=== PATIENT | female | born 1995 | race Two or more races ===

== ENCOUNTER 2023-07-20 10:09 | Outpatient (CLI) | payer OTHER | END 2023-07-20 12:45 | disposition home or self-care (01) | LOC: PRENATAL 10:09 | PROVIDERS: ATTEND Obstetrics & Gynecology Maternal & Fetal Medicine | DX: O36.80X0 Pregnancy with inconclusive fetal viability, not applicable or unspecified (principal); O99.210 Obesity complicating pregnancy, unspecified trimester; Z3A.11 11 weeks gestation of pregnancy ==

== ENCOUNTER 2023-09-15 08:04 | Outpatient (CLI) | payer OTHER | END 2023-09-15 08:05 | disposition home or self-care (01) | LOC: PRENATAL 08:04 | PROVIDERS: ATTEND Obstetrics & Gynecology Maternal & Fetal Medicine | DX: O35.3XX0 Maternal care for (suspected) damage to fetus from viral disease in mother, not applicable or unspecified (principal); O99.210 Obesity complicating pregnancy, unspecified trimester; O44.00 Complete placenta previa NOS or without hemorrhage, unspecified trimester; Z3A.19 19 weeks gestation of pregnancy ==

== ENCOUNTER → 2023-12-13 15:13 | Outpatient (CLI) | payer OTHER | END | disposition home or self-care (01) | LOC: PRENATAL 15:13 | PROVIDERS: ATTEND Obstetrics & Gynecology Maternal & Fetal Medicine | DX: O36.8199 Decreased fetal movements, unspecified trimester, other fetus (principal); Z3A.32 32 weeks gestation of pregnancy ==

== ENCOUNTER 2024-01-12 13:04 | Outpatient (CLI) | payer OTHER | END 2024-01-12 13:05 | disposition home or self-care (01) | LOC: PRENATAL 13:04 | PROVIDERS: ATTEND Obstetrics & Gynecology Maternal & Fetal Medicine | DX: O26.849 Uterine size-date discrepancy, unspecified trimester (principal); O36.8199 Decreased fetal movements, unspecified trimester, other fetus; Z3A.36 36 weeks gestation of pregnancy ==

== ENCOUNTER 2024-01-23 00:34 | Inpatient (IN) | payer OTHER ==
[~2024-01-23] VITALS: Ht 157.5 cm; Wt 92.5 kg
[2024-01-23] MEDS ORDERED: RINGERS SOLUTION,LACTATED 1,000 ML IV SCH (01:00)
[2024-01-23] MEDS ORDERED: PRENATABS RX T1 EACH PO (01:11)
[2024-01-23 01:13] LABS: PH,URINE 5.5 (5.0-8.0); URINE APPEARANCE Cloudy; URINE BILIRRUBIN Negative (NEGATIVE); URINE BLOOD Negative; URINE COLOR Dark Yellow; URINE GLUCOSE Negative (NEGATIVE); URINE LEUKOCYTE Small; URINE NITRATE Negative; URINE PROTEIN 30 (NEGATIVE)
[2024-01-23 01:14] LABS: HEMATOCRIT 32.9 % (36.0-45.00); HEMOGLOBIN 11.5 g/dL (12.0-15.00); MEAN CELL VOLUME 83.3 fL (80.00-100.00); MEAN CORPUSCULAR HEMOGLOBIN 29.2 pg (27.00-32.0); PLATELET COUNT 194 K/uL (150-450); RED BLOOD COUNT 3.95 M/uL (4.00-6.00); RED CELL DISTRIBUTION WIDTH 12.7 % (11.5-14.5)
[2024-01-23 01:17] LABS: URINE BACTERIA 8819.9 uL (0.0-1933); URINE EPITHELIAL CELLS 99.5 uL (0.0-38.8); URINE WBC 399.5 uL (0.0-23.2)
[2024-01-23 02:12] LABS: URINE MUCUS MODERATE
[2024-01-23] MEDS ORDERED: CEFAZOLIN SODIUM 1,000 MG VIAL IV SCH (02:21)
[2024-01-23] MEDS ORDERED: IBUprofen 400 MG TABLET PO STA (09:11)
[2024-01-23] MEDS ORDERED: FAMOTIDINE/PF 20 MG/2 ML VIAL IV SCH (09:12)
[2024-01-23] MEDS ORDERED: CARBOPROST TROMETHAMINE 250 MCG/ML AMPUL IM ONE (09:18)
[2024-01-23] MEDS ORDERED: ACETAMINOPHEN 500 MG GEL..CAP PO ONE ×2 (21:04→22:00)
[2024-01-24] MEDS ORDERED: MISOPROSTOL 25 MCG/4 ML GEL.W.APPL VAG ONE ×2 (08:30→12:45)
[2024-01-24] MEDS ORDERED: OXYTOCIN 10 UNITS/ML VIAL ONE (17:07)
[2024-01-24] MEDS ORDERED: ERYTHROMYCIN BASE 3.5 GM OINT...G. OP ONE (17:08)
[2024-01-24 17:36] LABS: INR 0.96; PARTIAL THROMBOPLASTIN TIME 30.1 SECONDS (22.0-34.0); PROTHROMBIN TIME 10.1 SECONDS (9.0-11.5)
[2024-01-24] MEDS ORDERED: MEPERIDINE HCL/PF 50 MG/ML VIAL IM PRN (20:00)
[2024-01-24] MEDS ORDERED: PROMETHAZINE HCL 50 MG/ML AMPUL IM PRN (20:00)
[2024-01-24] MEDS ORDERED: ERYTHROMYCIN BASE 1 GM TUBE OP ONE (20:30)
[2024-01-24] MEDS ORDERED: OXYTOCIN 10 UNITS/ML VIAL IV ONE (20:30)
[2024-01-24 20:55] LABS: ABG PH 7.292 (7.35-7.45); ABG PO2 21.8 mmHg (80-100); ABG pCO2 45.6 mmHg (35-45); BASE EXCESS -5.1 mmol/l; BICARBONATE 21.5 mmol/l (23-25); SaO2 28.7 %; Tco2 22.9 mmol/l; o2 21 %
[2024-01-24] MEDS ORDERED: ONDANSETRON HCL 2 MG/ML VIAL ONE (21:14)
[2024-01-24] MEDS ORDERED: MORPHINE SULFATE 4 MG/ML VIAL IV ONE (21:20)
[2024-01-24] MEDS ORDERED: ONDANSETRON HCL 2 MG/ML VIAL IV ONE (21:20)
[2024-01-25 01:40] LABS: HEMATOCRIT 34.3 % (36.0-45.00); MEAN CELL VOLUME 84.3 fL (80.00-100.00); MEAN CORPUSCULAR HEMOGLOBIN 28.2 pg (27.00-32.0); MEAN CORPUSCULAR HGB CONC 33.4 g/dl (32.0-36.0); PLATELET COUNT 190 K/uL (150-450); RED BLOOD COUNT 4.07 M/uL (4.00-6.00); RED CELL DISTRIBUTION WIDTH 12.6 % (11.5-14.5)
[2024-01-25 01:50] LABS: HEMOGLOBIN 11.5 g/dL (12.0-15.00)
[2024-01-25] MEDS ORDERED: OxyCODONE HCL/APAP UD (PERCOCET) PO PRN (08:00)
[2024-01-25] MEDS ORDERED: SIMETHICONE 125 MG CAPSULE PO SCH (09:00)
[2024-01-25] MEDS ORDERED: PNV,CALCIUM 72/IRON/FOLIC ACID 1 TAB TABLET PO SCH (09:00)
[2024-01-25] MEDS ORDERED: DOCUSATE SODIUM 100MG CAP PO SCH (09:00)
[2024-01-25] MEDS ORDERED: FAMOtidine 20 MG TABLET PO SCH (17:00)
[2024-01-27] MEDS ORDERED: IBUprofen 400 MG TABLET PO STA (10:19)
== END 2024-01-27 14:07 | disposition home or self-care (01) | DRG 787 ==
LOC: OBS/DEL 00:34 → LDR 13:04 → O/R 01-24 19:51 → OB/GYN 01-24 20:23
PROVIDERS: Obstetrics & Gynecology; ADMIT Obstetrics & Gynecology; ATTEND Obstetrics & Gynecology
PROC: 4A1HXCZ Monitoring of Products of Conception, Cardiac Rate, External Approach (ICD-10-PCS; 2024-01-23)
PROC: BY4FZZZ Ultrasonography of Third Trimester, Single Fetus (ICD-10-PCS; 2024-01-23)
PROC: 3E033VJ Introduction of Other Hormone into Peripheral Vein, Percutaneous Approach (ICD-10-PCS; 2024-01-23)
PROC: 3E0P7VZ Introduction of Hormone into Female Reproductive, Via Natural or Artificial Opening (ICD-10-PCS; 2024-01-24)
PROC: 10D00Z1 Extraction of Products of Conception, Low, Open Approach (ICD-10-PCS; principal; 2024-01-24 17:15)
DX: O62.2 Other uterine inertia (principal); O41.03X0 Oligohydramnios, third trimester, not applicable or unspecified; O28.8 Other abnormal findings on antenatal screening of mother; Z3A.38 38 weeks gestation of pregnancy; Z37.0 Single live birth; Z20.822 Contact with and (suspected) exposure to COVID-19

== ENCOUNTER 2025-08-08 10:25 | Outpatient (CLI) | payer OTHER ==
[~2025-08-08 10:25] MED LIST: PRENATABS RX T1 EACH PO
== END 2025-08-08 10:26 | disposition home or self-care (01) ==
LOC: PRENATAL 10:25
PROVIDERS: ATTEND Obstetrics & Gynecology Maternal & Fetal Medicine
DX: Z76.1 Encounter for health supervision and care of foundling (principal)

== ENCOUNTER 2025-09-07 21:02 | Emergency (ER) | payer OTHER ==
[~2025-09-07] VITALS: Ht 157.5 cm; Wt 96.6 kg
[2025-09-07] MEDS ORDERED: FOLIC ACID1 MG PO (21:31)
[2025-09-07] MEDS ORDERED: PEPCID AC10 MG PO (21:32)
[2025-09-07] MEDS ORDERED: ZOFRAN8 MG PO (21:32)
[2025-09-07] MEDS ORDERED: ACETAMINOPHEN 500 MG GEL..CAP PO ONE ×2 (22:12→22:15)
[2025-09-07] MEDS ORDERED: GUAIFEN/DEXTROMETHORPHAN/PE 10 ML BLIST.PACK PO ONE (22:12)
[2025-09-07] MEDS ORDERED: LEVALBUTEROL HCL 0.63 MG/3 ML SOLUTION IH ONE ×2 (22:15→22:23)
[2025-09-07] MEDS ORDERED: IPRATROPIUM BROMIDE 0.5 MG/2.5 ML AMPUL.NEB IH ONE ×2 (22:15→22:23)
[2025-09-07] MEDS ORDERED: GUAIFENESIN 200 MG/10 ML BLIST.PACK PO ONE (22:15)
[2025-09-07 22:36] LABS: BASO % 0.4 % (0.1-1.2); EOS # 0.03 (0.04-0.54); EOS % 0.6 % (0.7-7.0); LYMPH # 1.01 (1.18-3.74); LYMPH % 21.2 % (19.3-53.1); MEAN PLATELET VOLUME 11.50 fl (9.4-12.4); MONO # 0.73 (0.24-0.82); NEUT # 2.96 (1.56-6.13); NEUT % 62.3 % (34.0-71.1); RED CELL DISTRIBUTION WIDTH 15.8 % (11.6-14.4)
[2025-09-07 22:38] LABS: MONO % 15.3 % (4.7-12.5)
[2025-09-07 22:51] LABS: BUN CREA RATIO 6.0 (7.0-25.0); CREATININE SERUM 0.52 mg/dL (0.55-1.02); GFR 136.65; GLUCOSE FASTING 79.0 mg/dL (65-100); OSMOLALITY SERUM 279.0 MOSM/KG (275-295)
[2025-09-07 23:42] LABS: COVID-19 AG NEGATIVE (NEGATIVE)
== END 2025-09-08 04:47 | disposition home or self-care (01) ==
LOC: ER 21:02
PROVIDERS: General Practice
DX: O99.512 Diseases of the respiratory system complicating pregnancy, second trimester (principal); J10.1 Influenza due to other identified influenza virus with other respiratory manifestations; Z3A.18 18 weeks gestation of pregnancy; Z20.822 Contact with and (suspected) exposure to COVID-19

== ENCOUNTER → 2025-10-17 10:25 | Outpatient (CLI) | payer OTHER ==
[~2025-10-17 10:25] MED LIST changes: +FOLIC ACID1 MG PO; +PEPCID AC10 MG PO; +ZOFRAN8 MG PO
== END | disposition home or self-care (01) ==
LOC: PRENATAL 10:25
PROVIDERS: ATTEND Obstetrics & Gynecology Maternal & Fetal Medicine
DX: O44.02 Complete placenta previa NOS or without hemorrhage, second trimester (principal); O34.219 Maternal care for unspecified type scar from previous cesarean delivery; O36.1920 Maternal care for other isoimmunization, second trimester, not applicable or unspecified; O99.012 Anemia complicating pregnancy, second trimester; Z3A.25 25 weeks gestation of pregnancy

== ENCOUNTER → 2025-10-24 06:25 | Outpatient (CLI) | payer OTHER | END | disposition home or self-care (01) | LOC: PRENATAL 06:25 | PROVIDERS: ATTEND Obstetrics & Gynecology Maternal & Fetal Medicine | DX: Z76.1 Encounter for health supervision and care of foundling (principal) ==